=== PATIENT | female | born 1940 | race Caucasian/White ===

== ENCOUNTER 2025-02-22 16:22 | Emergency (ER) | payer MEDICARE, BC, SELFPAY ==
[2025-02-22 16:25] VITALS: BP 118/55; PULSE 59; RESP 17; TEMP 36.7; O2SAT 95; BMI 26.9
[2025-02-22 16:26] VITALS: PULSE 62; RESP 18; O2SAT 98; BMI 26.9
--- NOTE | 2025-02-22 16:46 | PD.EDDIZZY ---
ED Dizzyness RME/HPI General Chief Complaint: Dizziness Stated Complaint: NEAR SYNCOPE Time Seen by Provider: 02/22/25 17:04 Arrival date/time: 02/22/25 16:22 Limitations: no limitations RME / HPI RME / HPI Narrative: DR. 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 EMS reports that her heart rate was noted to be in the 50s en route. She denies chest pain, shortness of breath, or worsening abdominal pain beyond her usual baseline discomfort. No recent medication changes or missed doses reported. Patient is visiting from the [facility]. Has been here for a few days. No lower extremity swelling, no shortness of breath no chest pain. Related Data Home Medications ?Medication ?Instructions ?Recorded ?Confirmed diltiazem HCl 180 mg capsule,24 180 mg PO QDAY 10/23/20 10/23/20 hr,extended release levothyroxine 25 mcg tablet 25 mcg PO QDAY 10/23/20 10/23/20 omeprazole 20 mg tablet,delayed 20 mg PO QDAY 10/23/20 10/23/20 release rosuvastatin 10 mg tablet 10 mg PO QDAY 10/23/20 10/23/20 sertraline 50 mg tablet 50 mg PO QDAY 10/23/20 10/23/20 Previous Rx's ?Medication ?Instructions ?Recorded aspirin 81 mg tablet,delayed 81 mg PO QDAY #30 tabs 10/25/20 release Allergies Allergy/AdvReac Type Severity Reaction Status Date / Time codeine Allergy Vomiting Verified 02/22/25 16:26 Review of Systems Review of Systems Systems Reviewed: All systems reviewed, normal except as documented Past Medical History Past Medical History NEUROLOGIC: Positive Neurological Disorders and Cerebrovascular Accident CARDIAC: Positive Cardiac Disorders, Hypercholesterolemia and Hypertension GASTROINTESTINAL: Positive Gastrointestinal Disorders, Hemorrhoids and Gastroesophageal Reflux Disease GENITOURINARY: Positive Genitourinary Disorders (INCONTNENCE) REPRODUCTIVE: Positive Endometriosis (histerectomy 37 years ago) and Previous Pregnancies (4) MUSCULOSKELETAL: Positive Arthritis (SPINE AND HIPS) ENT: Positive Cataracts and Deafness (difficulty) ENDOCRINE: Positive Endocrine Disorders (unknown if hypo or hyperthyroidism) and Hypothyroidism PSYCHO/SOCIAL: Positive Depression (on Zoloft) OTHER HISTORY: Positive Hospitalization and Falls Family History FAMILY HISTORY: Positive Family Cardiac Disorders, Family Gastrointestinal Problems (colon), Family Cancer, Family Surgery and Family Anesthesia Reaction (Daughters) Surgical History SURGICAL: Positive Eye Surgery and Hysterectomy (PARTIAL) Social History SMOKING STATUS: Light (< 1 pack/day) ED Exam General Limitations: Present no limitations General appearance: Present alert and in no apparent distress Head Head exam: Present atraumatic, normocephalic and normal inspection Eye Eye exam: Present normal appearance, PERRL and EOMI ENT ENT exam: Present normal exam, normal oropharynx and mucous membranes moist Neck Neck exam: Present normal inspection, full ROM and trachea midline Chest Chest inspection: Present normal inspection and symmetric chest wall rise Respiratory Respiratory exam: Present normal lung sounds bilaterally Cardiovascular Cardiovascular exam: Present regular rate, normal rhythm and normal heart sounds Abdominal Exam Abdominal exam: Present soft and normal bowel sounds; Absent distention, tenderness or guarding Extremities Exam Extremities exam: Present normal inspection and full ROM; Absent tenderness Neurological Exam Neurological exam: Present alert, oriented X3 and CN II-XII intact; Absent motor sensory deficit Psychiatric Psychiatric exam: Present normal affect and normal mood Skin Skin exam: Present warm, dry, intact and normal color Course Quality Measures none Orders Category Date Time Status Bedside COVID-19 Antigen Test NOW Care 02/22/25 17:05 Active EKG (ED ONLY) *Do not use* NOW Care 02/22/25 17:05 Active CXR [XR chest 1V] Stat Exams 02/22/25 17:04 Taken EKG (ED Only) Stat Exams 02/22/25 17:04 Ordered BNP [B-Type Natriuretic Peptide] Stat Lab 02/22/25 17:05 Ordered CBC Stat Lab 02/22/25 17:04 Ordered CMP [Comprehensive Metabolic Panel] Stat Lab 02/22/25 17:05 Ordered Influenza A & B Rapid Panel Stat Lab 02/22/25 17:05 Ordered PT [Prothrombin Time with INR] Stat Lab 02/22/25 17:05 Ordered Troponin I Stat Lab 02/22/25 17:05 Ordered UA, C/S IF [Urinalysis, C/S if Indicated] Stat Lab 02/22/25 17:05 Ordered Ringers Lactated 500 ml [Lactated Ringers] 500 ml Med 02/22/25 17:05 Active IV 500 mls/hr Vital Signs Vital signs: Vital Signs Temperature 98.0 F 02/22/25 16:25 Pulse Rate 59 L 02/22/25 16:25 Respiratory Rate 17 02/22/25 16:25 Blood Pressure 118/55 L 02/22/25 16:25 Pulse Oximetry (%) 95 02/22/25 16:25 Oxygen Delivery Method Nasal Cannula 02/22/25 16:25 Dizziness MDM Narrative MDM Narrative:: Patient is an 84-year-old female seen emerged apartment with concerns for almost passing out while grocery shopping earlier today. Vital signs and exam as listed. Concern for ACS arrhythmia electrolyte abnormality viral syndrome pneumonia among others. Ordered labs EKG chest x-ray and offer medication for symptom relief. Patient will be signed out to oncoming provider pending results of her workup and safe dispo. Joyce Conti am scribing for and in the presence of Dr. Gandhi. Patient data External records reviewed:: [facility] previous records and EMS form Clinical information provided by:: patient and EMS Social determinants that could affect healthcare access:: none Patient has the following chronic illnesses:: arrhythmia, CVA, and hyperlipidemia How is presenting disease/condition affected by chronic disease/condition?: exacerbated by Evaluation data The following diagnostics were reviewed and interpreted by me:: lab results, radiology exam(s) and EKG tracing(s) Lab and/or radiology exams considered but not ordered:: none Interpretation Summary: See MDM narrative above. Medications / Prescriptions Medications or Prescriptions considered but not ordered:: none Medication administrations:: Medication Administration History Lactated Ringer's (Lactated Ringers) 500 mls @ 500 mls/hr IV .Q1H ONE Stop: 02/22/25 18:04 see above if any Consultations Consultation(s) initiated? (list below): No Diagnosis Dizziness Differential Diagnosis: other (Sinus bradycardia, medication-induced bradycardia, vasovagal episode, and orthostatic hypotension.) Most likely diagnosis given after review of the tests above:: Presyncope Admission Indicated Admission indicated?: not indicated Admission Request Was there a request for admission?: No Disposition Plan Disposition Plan: other (specify) (Signout) Discharge Plan Prescriptions/Referrals Prescriptions/Med Rec: No Action diltiazem HCl 180 mg Capsule,Extended Release 24 Hr 180 mg PO QDAY levothyroxine 25 mcg Tablet 25 mcg PO QDAY sertraline 50 mg Tablet 50 mg PO QDAY rosuvastatin 10 mg Tablet 10 mg PO QDAY omeprazole 20 mg Tablet,Delayed Release (Dr/Ec) 20 mg PO QDAY aspirin 81 mg tablet,delayed release (DR/EC) 81 mg PO QDAY Qty: 30 0RF Referrals: No Primary/Family,Physician [Primary Care Provider] - In 1 week Problem List Clinical Impression: Pre-syncope Patient/Caregiver Discharge Instructions Print Language: Maldivian
--- NOTE | 2025-02-22 17:04 | EKG_ITS ---
[facility] Test Date: 2025-02-22 Pat Name: LISSETTE SORENSON Department: Room: - Gender: Female [employer]: : 1940 Requested By: Massiel Almaraz Order Number: [id number] Reading MD: Massiel Almaraz Measurements Intervals [place] Rate: 57 P: 52 ME: 168 QRS: 4 QRSD: 92 T: 55 QT: 440 QTc: 429 Interpretive Statements SINUS BRADYCARDIA WITH FREQUENT VENTRICULAR PREMATURE COMPLEXES ABNORMAL RHYTHM ECG Compared to ECG 10/23/2020 07:59:56 Ventricular premature complex(es) now present Sinus rhythm no longer present /store/[id number].pdf
--- NOTE | 2025-02-22 17:04 | XR_ITS ---
Examination: AP chest single view Technique one AP portable sitting chest single view Date and time: February 22, 2025, 171 hrs., Comparison October 23, 2020 Indications: Weakness today. Findings: No significant cardiac enlargement Moderate vascular congestion Again noted biapical pleural thickening No interval pneumonia or pulmonary edema Impression: Moderate vascular congestion
[2025-02-22] MEDS: RINGERS LACTATED 500 ML 500 ML IV (17:32)
[2025-02-22 17:35] VITALS: BP 159/76; PULSE 61; RESP 16; O2SAT 98
--- NOTE | 2025-02-22 18:02 | EDNOTE_ITS ---
Emergency Room Addendum <Hansa Hung - Last Filed: 02/22/25 21:08> Addendum Narrative: I took over the care from Dr. Gandhi at 6 PM on 02/22/2025, see notes for complete H&P and ED course. I reviewed all diagnostic test results. At this point, diagnoses include: Near syncope Based on my best medical judgment, made decision no further evaluation or treatment indicated at this time. Patient understands and agrees to the discharge instructions customized and printed, see below. Discharge instructions from Dr. Wilkins: 1. After extensive evaluation, there is no life-threatening condition.? Such as stroke or heart attack. And there is no serious infection, such as pneumonia or urinary tract infection. 2. Continue to eat regular nutritious meals. For good hydration, increase oral fluid and maintain clear urine. If dark or yellow, increase oral fluid. 3. Continue to be physically active. Prolonged inactivity is terrible for your body. 4. See a private doctor on 02/23/2025 for recheck and further care. To make sure there is no serious underlying heart condition, ask to help you get more tests for your heart that cannot be done here in the ER.? Such as Holter Monitor (cardiac monitoring at home from a day to even a month), heart stress test (on treadmill or with medication), echocardiogram (imaging of your heart structures), heart catherization (checking for blockages in your heart arteries), and a referral to see a Electronic Test Technician. Ask to consider MRI imaging of the brain and referral to see neurologist. 5. Seek immediate medical care with worsening or with any concerns.?? Jin Wilkins MD <Jin Wilkins MD - Last Filed: 02/22/25 22:01> Addendum Narrative: I took over the care from Dr. Gandhi at 6 PM on 02/22/2025, see notes for complete H&P and ED course. I reviewed all diagnostic test results. My interpretation of the EKG is: Sinus rhythm with nonspecific ST-T changes. My interpretation of CXR is no acute findings. My review of head CT report is no acute findings. Urine and blood tests unremarkable. At this point, diagnoses include: Near syncope with unclear etiology Patient had brief near syncopal episode. Returned to normal prior to the hospital. Patient remained stable. Recommended more outpatient workup. Based on my best medical judgment, made decision no further evaluation or treatment indicated at this time. Patient and daughter understands and agrees to the discharge instructions customized and printed, see below. Discharge instructions from Dr. Wilkins: 1. After extensive evaluation, there is no life-threatening condition.? Such as stroke or heart attack. And there is no serious infection, such as pneumonia or urinary tract infection. 2. Continue to eat regular nutritious meals. For good hydration, increase oral fluid and maintain clear urine. If dark or yellow, increase oral fluid. 3. Continue to be physically active. Prolonged inactivity is terrible for your body. 4. See a private doctor on 02/23/2025 for recheck and further care. To make sure there is no serious underlying heart condition, ask to help you get more tests for your heart that cannot be done here in the ER.? Such as Holter Monitor (cardiac monitoring at home from a day to even a month), heart stress test (on treadmill or with medication), echocardiogram (imaging of your heart structures), heart catherization (checking for blockages in your heart arteries), and a referral to see a Electronic Test Technician. Ask to consider MRI imaging of the brain and referral to see neurologist. 5. Seek immediate medical care with worsening or with any concerns.?? Jin Wilkins MD
[2025-02-22 18:08] VITALS: BP 154/70; PULSE 66; RESP 18; TEMP 36.6; O2SAT 100
[2025-02-22 18:09] LABS: Basophils # (Auto) 0.0 Thou/mm3 (0.0-0.2); Basophils % (Auto) 1 % (0-2.5); Eosinophils # (Auto) 0.1 Thou/mm3 (0.0-0.5); Eosinophils % (Auto) 2 % (0-10); Hematocrit 40.9 % (36.0-46.0); Hemoglobin 13.4 g/dL (12.0-16.0); Immature Granulocytes Auto 0.01 Thou/mm3 (0.00-0.00); Lymphocytes # (Auto) 2.1 Thou/mm3 (1.0-4.8); Lymphocytes % (Auto) 38 % (10-50); Mean Corpuscular HGB Conc 32.8 g/dl (31.0-37.0); Mean Corpuscular Hemoglobin 32.1 pg (25.0-35.0); Mean Corpuscular Volume 98 fL (80-100); Monocytes # (Auto) 0.4 Thou/mm3 (0.0-0.8); Monocytes % (Auto) 7 % (0-12); Neutrophils # (Auto) 2.9 Thou/mm3 (1.8-7.7); Neutrophils % (Auto) 53 % (37-80); Nucleated Red Blood Cell # 0.00 Thou/mm3 (0.00-0.00); Nucleated Red Blood Cell % 0 /100 WBC (0); Platelet Count 175 Thou/mm3 (140-440); RDW Standard Deviation 47.3 fL (36.4-46.3); Red Blood Count 4.18 Miln/mm3 (4.00-5.20); White Blood Count 5.6 Thou/mm3 (3.6-11.0)
[2025-02-22 18:14] LABS: B-Type Natriuretic Peptide 233 pg/mL (0-100); INR 1.0 (0.9-1.3); Prothrombin Time 11.0 Seconds (9.0-12.2)
[2025-02-22 18:16] LABS: Alanine Aminotransferase < 7 U/L (10-49); Albumin, Serum 4.4 gm/dL (3.4-4.8); Albumin/Globulin Ratio 1.5 (1.2-2.2); Alkaline Phosphatase 113 U/L (46-116); Anion Gap 9 (7-16); Aspartate Amino Transferase 19 U/L (0-34); BUN/Creatinine Ratio 12 Ratio (12-20); Bilirubin,Total 0.8 mg/dL (0.3-1.2); Blood Urea Nitrogen 14 mg/dL (9-23); Calcium 9.7 mg/dL (8.3-10.6); Calcium (Corrected) 9.7 mg/dL (8.5-10.1); Carbon Dioxide 28.6 mMol/L (20.0-31.0); Chloride 105 mMol/L (98-107); Creatinine (Component) 1.2 mg/dL (0.6-1.3); Estimated Creatinine Clearance 33.1 mL/min (>60); Globulin 2.9 gm/dL (2.3-3.5); Glucose 125 mg/dL (74-106); Osmolality,Calculated 286 (275-295); Potassium 3.9 mMol/L (3.4-5.1); Sodium 143 mMol/L (136-145); Total Protein 7.3 gm/dL (5.7-8.2); Troponin I < 0.020 ng/mL (0.0-0.045); eGFR 45 See Note
--- NOTE | 2025-02-22 20:04 | XR_ITS ---
Examination: CT brain head without contrast. 2-D sagittal coronal reconstructions Date and time of exam:February 22, 2025, 2018 hrs. Indications: Syncopal episode today CTDI: vol (mGy):51.9 DLP: (mGycm):1081 Technique: Multiple CT axial sections of the brain have been obtained, 5 mm slice thickness. Contrast has not been administered. 2-D sagittal, coronal reconstructions have been obtained Low dose protocols were performed. One or more of the following dose reduction techniques were used; automated exposure control, adjustment of the mA and/or KV according to patient size, use of iterative reconstruction technique. Findings: No significant ventricular enlargement. Intra-axial or extra-axial hemorrhage density is not seen. No mass effect or midline shift Basal cisterns are not remarkable. Fourth ventricle is midline. Cranial vault intact. Impression: Negative for acute hemorrhage, mass effect or midline shift Advise clinical correlation and follow-up accordingly
[2025-02-22 20:17] LABS: Collection Type, Urine Clean Catch
[2025-02-22 20:27] LABS: Bilirubin,Urine Negative (Negative); Blood,Urine Negative (Negative); Clarity,Urine Clear (Clear/Hazy); Color,Urine Yellow (Lt Yel-Yel); Culture Indicated,Urine Not Indicated; Glucose, Urine Negative (Negative); Hyaline Casts,Urine < 1 /hpf (0-1); Ketones,Urine Negative (Negative); Leukocyte Esterase,Urine Negative (Negative); Nitrite,Urine Negative (Negative); PH,Urine 6.0 (5.0-7.0); Protein,Urine Negative (Neg - Trace); RBC,Urine 6 /hpf (0-3); Specific Gravity,Urine 1.024 (1.001-1.035); Squamous Epithelial Cell,Urine 1 /hpf (0-5); Urobilinogen,Urine 8.0 mg/dL (0.0-1.0); WBC,Urine 1 /hpf (0-5)
[2025-02-22 21:12] LABS: Magnesium 1.8 mg/dL (1.6-2.6); Thyroid Stimulating Hormone 2.34 uIU/mL (0.55-4.78); Troponin I < 0.020 ng/mL (0.0-0.045)
== END 2025-02-22 21:32 | disposition home or self-care (01) ==
PROVIDERS: Emergency Medicine; Emergency Provider Emergency Medicine
DX: R55 Syncope and collapse (principal); Z86.73 Personal history of transient ischemic attack (TIA), and cerebral infarction without residual deficits
CPT/HCPCS: 36415; 70450; 71045; 80053; 81001; 83735; 83880; 84443; 84484; 85025; 85610; 87502; 87811; 93005; 99284; J7120